=== PATIENT | female | born 1985 | race Caucasian/White ===

== ENCOUNTER 2016-10-06 08:37 | Emergency (ER) | payer MEDICAID ==
[2016-10-06 08:55] LABS: URINE APPEARANCE SL CLOUDY; URINE COLOR YELLOW; URINE GLUCOSE (UA) NEGATIVE (NEGATIVE)
[2016-10-06 08:56] LABS: URINE BILIRUBIN NEGATIVE (NEGATIVE); URINE BLOOD LARGE (NEGATIVE); URINE KETONE NEGATIVE (NEGATIVE); URINE LEUKOCYTE ESTERASE SMALL (NEGATIVE); URINE NITRITE NEGATIVE (NEGATIVE); URINE PROTEIN TRACE (NEGATIVE); URINE UROBILINOGEN 0.2 E.U./dL (0.20 - 1.00)
[2016-10-06 08:57] LABS: URINE BACTERIA FEW; URINE SQUAMOUS EPITHELIAL CELL 0 - 2 /hpf; URINE WBC 16 - 20 (0-2/hpf)
--- NOTE | 2016-10-06 09:02 | Emergency Department Record ---
History of Present Illness - General Chief complaint: Female Urogenital Problem Stated complaint: YEAST INFECTION Time Seen by Provider: 10/06/16 08:38 Source: Patient Mode of Arrival: Ambulatory Limitations: No limitations - History of Present Illness Initial comments: 31 yo female presents to ED with a CC of dysuria symptoms that began approximately 2 hours prior to arrival. Patient denies flank pain, fevers, chills, or recent illness. Patient denies health problems at her baseline. Patient does reports mild vaginal discharge that was noticed this morning. MD Complaint: Dysuria Onset/Timin -: Days(s) Severity: Mild Severity scale (1-10): 1 Quality: Aching Consistency: Constant, Intermittent Improves with: None Worsens with: None LMP Date: 10/01/16 Gestational Age (wks) based on LMP: 0 Associated Symptoms: Vaginal discharge - Related Data Sexually active: Yes : 2 Para: 2 Previous Rx's Medication Instructions Recorded Nitrofurantoin [place] [Macrobid] 100 mg PO BID #14 capsule 10/06/16 Phenazopyridine HCl [Pyridium] 200 mg PO TID #6 tab 10/06/16 Allergies Allergy/AdvReac Type Severity Reaction Status Date / Time hydromorphone [From Dilaudid] Allergy VOMITING Verified 10/06/16 08:52 Travel Screening - Travel/Exposure Within Last 30 Days Have you traveled within the last 30 days?: No - Travel/Exposure Within Last Year Have you traveled outside the [place] in the last year?: No - Additonal Travel Details Have you been exposed to anyone with a communicable illness?: No - Travel Symptoms Symptom Screening: None Review of Systems Constitutional: Denies: Chills, Fever, Malaise, Night sweats Eyes: Denies: Eye discharge, Eye pain ENT: Denies: Congestion, Ear pain Respiratory: Denies: Cough, Dyspnea Cardiovascular: Denies: Chest pain, Dyspnea on exertion Endocrine: Denies: Fatigue, Heat or cold intolerance Gastrointestinal: Denies: Abdominal pain, Nausea, Vomiting Genitourinary: Reports: Dysuria. Denies: Incontinence, Retention Musculoskeletal: Denies: Arthralgia, Back pain Skin: Denies: Bruising, Change in color Neurological: Denies: Abnormal gait, Confusion, Headache, Seizure Psychiatric: Denies: Anxiety Hematological/Lymphatic: Denies: Anemia, Blood Clots Past Medical History - SOCIAL HISTORY Smoking Status: Never smoker Alcohol Use: Rare Drug Use: None - [employer]EV[employer] History : 2 Para: 2 - RESPIRATORY Hx Respiratory Disorders: No - CARDIOVASCULAR Hx Cardio Disorders: No - NEURO Hx Neuro Disorders: No - GI Hx GI Disorders: No - Hx UTI: Yes - ENDOCRINE Hx Diabetes: No Hx Thyroid Disease: No - MUSCULOSKELETAL Hx Musculoskeletal Disorders: No - PSYCH Hx Psych Problems: No - HEMATOLOGY/ONCOLOGY Hx Hematology/Oncology Disorders: No Family Medical History Any Significant Family History?: Yes Hx Cancer: Grandparents Physical Exam - General General Appearance: Alert, Oriented x3, Cooperative, Mild distress Limitations: No limitations - Head Head exam: Atraumatic, Normocephalic, Normal inspection Head exam detail: negative: Abrasion, Contusion, Johnson's sign, General tenderness, Hematoma, Laceration - Eye Eye exam: Normal appearance. negative: Conjunctival injection, Periorbital swelling, Periorbital tenderness, Scleral icterus - ENT Ear exam: negative: Auricular hematoma, Auricular trauma Nasal Exam: negative: Active bleeding, Discharge, Dried blood Mouth exam: negative: Drooling, Laceration, Muffled voice, Tongue elevation - Neck Neck exam: Normal inspection. negative: Meningismus, Tenderness - Respiratory Respiratory exam: Normal lung sounds bilaterally. negative: Rales, Respiratory distress, Rhonchi, Stridor - Cardiovascular Cardiovascular Exam: Regular rate, Normal rhythm, Normal heart sounds - GI/Abdominal GI/Abdominal exam: Soft. negative: Rebound, Rigid, Tenderness - Rectal Rectal exam: Deferred - exam: Normal speculum exam, Vaginal discharge (mild cervical discharge is present). negative: Vaginal bleeding - Extremities Extremities exam: Normal inspection. negative: Calf tenderness, Pedal edema, Tenderness - Back Back exam: Denies: CVA tenderness (R), CVA tenderness (L) - Neurological Neurological exam: Alert, Normal gait, Oriented X3 - Psychiatric Psychiatric exam: Normal affect, Normal mood - Skin Skin exam: Normal color. negative: Abrasion Type of lesion: negative: abrasion Course Vital Signs 10/06/16 08:40 Temperature 97.8 F Pulse Rate 89 Respiratory 16 Rate Blood Pressure 121/91 Pulse Ox 99 - Reevaluation(s) Reevaluation #1: 10/06/16 09:39 Wet prep fails to demonstrate any yeast or trichomonas. UA demonstrates 16-20 WBCs, few bacteria. Will treat for symptomatic dysuria with Macrobid and Pyridium with instructions for follow-up in 3-5 days as directed with her PCP. Medical Decision Making - Lab Data Lab Results 10/06/16 Range/Units 08:38 Urine Color Yellow Urine Appearance Sl cloudy Urine pH 6.0 (5.0-8.0) Ur Specific [place] 1.025 (1.002-1.030) Urine Protein Trace H (NEGATIVE) Urine Glucose (UA) Negative (NEGATIVE) Urine Ketones Negative (NEGATIVE) Urine Blood Large H (NEGATIVE) Urine Nitrite Negative (NEGATIVE) Urine Bilirubin Negative (NEGATIVE) Urine Urobilinogen 0.2 (0.20 - 1.00) E.U./dL Ur Leukocyte Esterase Small H (NEGATIVE) Urine RBC 10 - 15 (NONE SEEN) Urine WBC 16 - 20 (0-2/hpf) U Non-Squamous Epi Cells 0 - 2 /hpf Urine Bacteria Few Disposition Disposition: Discharge Clinical Impression: Dysuria Disposition: Home, Self-Care Condition: (2) Stable Instructions: Dysuria (ED) Additional Instructions: Return to ED if your symptoms worsen or if you have any concerns. Macrbid and Pyridium as directed. Follow-up with your family doctor in 3-5 days as directed. Prescriptions: Nitrofurantoin [place] [Macrobid] 100 mg PO BID #14 capsule Phenazopyridine HCl [Pyridium] 200 mg PO TID #6 tab Forms: Patient Portal Access Time of Disposition: 09:42
[2016-10-06] MEDS ORDERED: NITROFURANTOIN MONO 100 MG CAPSULE PO ONE (09:44)
[2016-10-06] MEDS ORDERED: PHENAZOPYRIDINE HCL 95 MG TABLET PO ONE (09:44)
[2016-10-07 22:29] LABS: GC SPECIMEN TYPE Cervix
== END 2016-10-06 10:12 | disposition home or self-care (01) ==
LOC: ER 08:37
DX: R30.0 Dysuria (principal); N89.8 Other specified noninflammatory disorders of vagina
CPT/HCPCS: 99284 ×2; 81001; Q0111; 87210